=== PATIENT | female | born 2000 | race Two or more races ===

== ENCOUNTER 2021-04-21 22:58 | Inpatient (IN) | payer MEDICAID, SELFPAY ==
--- NOTE | ~2021-04-21 | US_ITS ---
EXAMINATION: US ABDOMEN LIMITED CLINICAL INFORMATION: Increased LFTs.. COMPARISON: None TECHNIQUE: Real-time imaging of the right upper quadrant abdominal viscera. FINDINGS: PANCREAS: Normal. LIVER: Normal. The liver is normal in size. The liver contour is normal. Parenchymal echogenicity is increased. No focal hepatic lesion. There is no intrahepatic biliary duct dilatation seen. GALLBLADDER: Color wall thickness measures 0.72 with minimal fluid within the gallbladder wall. The gallbladder is physiologically distended without evidence of stones, sludge, polyps, wall thickening or pericholecystic fluid. COMMON BILE DUCT: Normal in caliber measuring 0.16 cm in diameter. RIGHT KIDNEY: Normal. No hydronephrosis. No renal calculi or focal parenchymal lesions. The kidney measures 10.3 cm in maximum dimension. FREE FLUID: None. US/US abdomen limited IMPRESSION: Increased hepatic echogenicity but no focal lesion seen. Diffuse gallbladder wall thickening with with fluid collection within the wall. No echogenic gallstone. Question a calculus cholecystitis. Correlate with clinical examination if clinically indicated HIDA scan. Right kidney, CBD and pancreas is unremarkable.
--- NOTE | ~2021-04-21 | NM_ITS ---
EXAMINATION: NUCLEAR MEDICINE HEPATOBILIARY WITH PHARMACY. CLINICAL INFORMATION: Acalculus cholecystitis. Increased LFTs. COMPARISON: Ultrasound abdomen 04/22/2021. TECHNIQUE: Following intravenous administration of 5 mCi of 99m technetium mebrofenin, imaging of the right upper quadrant was obtained up to 60 minutes. At 60 minutes 8 ounces of Ensure was administered orally and further imaging was obtained upto 60 minutes. FINDINGS: There is normal hepatic uptake without any focal defects. There is prompt visualization of the gallbladder by 10 minutes and small bowel by 35 minutes. Following oral administration of Ensure the gallbladder ejection fraction measures 80% at 60 minutes and 82% at 30 minutes. NM/NM hepatobiliary w pharm IMPRESSION: Normal hepatic uptake. Patent cystic duct and patent common bile duct. Normal gallbladder ejection fraction of 88% at 60 minutes.
--- NOTE | ~2021-04-21 | XR_ITS ---
EXAMINATION: XR CHEST CLINICAL INFORMATION: Cough COMPARISON: None TECHNIQUE: Frontal view of the chest was obtained. FINDINGS: Lung volumes are symmetric. No focal consolidation is seen. No evidence of pneumothorax, pleural effusion, or pulmonary edema. The cardiomediastinal contour is unremarkable. No acute osseous findings are seen. XR/XR chest 1V IMPRESSION: No acute cardiopulmonary findings.
--- NOTE | ~2021-04-21 | CT_ITS ---
EXAMINATION: CT ABDOMEN AND PELVIS WITH CONTRAST CLINICAL INFORMATION: Fever, leukocytosis, vomiting, elevated LFTs, abdominal pain COMPARISON: None TECHNIQUE: Multidetector volumetric images were obtained from the superior aspect of the liver through the pubic symphysis following administration 75 mL of Omnipaque 350 intravenous contrast. Sagittal and coronal reformatted images were obtained on the technologist's workstation. Oral contrast: No This CT examination was performed using dose optimization techniques as appropriate, variously including the following: *Automated exposure control *Adjustment of mA and/or kV according to patient size (this includes techniques or standardized protocols for targeted exams where dose is matched to indication/reason for exam; i.e. extremities or head) *Use of iterative reconstruction technique DLP: 399 mGy-cm FINDINGS: LUNG BASES: The visualized lung bases demonstrate minimal atelectasis. LIVER, GALLBLADDER, AND BILIARY TREE: The liver is normal in size, shape, and attenuation. No focal hepatic lesion or biliary ductal dilatation is present. The gallbladder is unremarkable with no evidence of radiopaque gallstones, gallbladder wall thickening, or obvious pericholecystic inflammatory changes. PANCREAS: Unremarkable. SPLEEN: Unremarkable. ADRENAL GLANDS: Unremarkable. KIDNEYS AND URETERS: Both kidneys demonstrate heterogeneous nephrograms, with scattered areas of cortical hypoattenuation. Appearance is suspicious for pyelonephritis given the clinical history. No hydronephrosis or obstructing calculus is seen. Mild bilateral perinephric stranding. BLADDER: Partially distended with mild diffuse wall thickening. GASTROINTESTINAL TRACT: Assessment for wall thickening in some segments of the colon is limited due to luminal collapse. No evidence of bowel obstruction. Appendix contains gas and is nondilated. No free air is seen. ABDOMINAL WALL: No significant hernia is appreciated. LYMPH NODES: Scattered mesenteric and retroperitoneal subcentimeter lymph nodes are present, without significant enlargement by size criteria. VASCULAR: Unremarkable. PELVIC VISCERA: Unremarkable. Small amount of pelvic free fluid is noted. OSSEOUS STRUCTURES: Unremarkable. CT/CT abdomen pelvis w con IMPRESSION: 1. Heterogeneous bilateral nephrograms with scattered areas of cortical hypoattenuation in the kidneys. Given the clinical history, appearance is suspicious for pyelonephritis. 2. Mild wall thickening of the urinary bladder which could be secondary to cystitis. 3. Small amount of pelvic free fluid.
[2021-04-21 23:01] VITALS: BP 117/73; PULSE 113; RESP 18; TEMP 37.9; O2SAT 99
--- NOTE | 2021-04-21 23:53 | ED_ITS ---
HPI - General Adult General Chief complaint: General Medical Stated complaint: fever/vomiting Time Seen by Provider: 04/21/21 23:50 Source: patient Mode of arrival: ambulatory Limitations: no limitations History of Present Illness HPI narrative: 20-year-old female came in for evaluation of subjective fever, nausea, vomiting, coughing. Patient started with flu-like symptoms 2 days ago, patient unable to keep p.o. i ntake due to severe vomiting and fever and chills, patient has been coughing with productive white sputum, no sick contact, no recent travel, patient received 1 dose of COVID vaccination 2 weeks ago. No abdominal pain. Related Data Allergies Allergy/AdvReac Type Severity Reaction Status Date / Time No Known Allergies Allergy Verified 04/21/21 23:03 Review of Systems Review of Systems: All other systems are reviewed and are negative Constitutional: Reports as per HPI and Reports no additional constitutional complaints Eyes: Reports as per HPI and Reports no additional eye complaints Reports system reviewed and no additional complaints, except as documented Cardiovascular: Reports as per HPI and Reports no additional cardiovascular complaints Respiratory: Reports as per HPI and Reports no additional respiratory complaints Gastrointestinal: Reports as per HPI and Reports no additional gastrointestinal complaints Genitourinary: Reports no additional female genitourinary complaints Musculoskeletal: Reports no additional musculoskeletal complaints Skin/Breast: Reports system reviewed and no additional complaints, except as docu Psychiatric: Reports no additional psychiatric complaints Endocrine: Reports no additional endocrine complaints Hematologic/Lymphatic: Reports no additional hematologic/lymphatic complaints Allergic/Immunologic: Reports no additional allergic/immunologic complaints Reports system reviewed and no additional complaints, except as documented and Reports Abnormal speech present [facility] Past Medical History Medical History No known health problems Social History Social History Advance Directives: No Patient : No Physical Exam Vital Signs: Vital Signs: Last Vital Signs Temp 100.3 F 04/21/21 23:01 Pulse 113 H 04/21/21 23:01 Resp 18 04/21/21 23:01 BP 117/73 04/21/21 23:01 Pulse Ox 99 04/21/21 23:01 Body Mass Index 20.0 Vital signs have been reviewed as appeared to be correct. Blood pressure normal. Heart rate tachycardia. Respiration rate normal. Temperature normal. Oxygen saturation normal. Appearance: Alert. Oriented X3. No acute distress. Head: Normal external exam. Normocephalic. Atraumatic. No Vásquez signs noted. No raccoon eyes noted Eyes: PERRLA. EOMI. Conjunctiva and sclera normal. Eyelids normal. ENT: TM's Normal. Pharynx normal. Uvula midline. Dry mucous membranes. No trismus noted. No drooling noted. No muffled voice noted. Neck: Normal inspection. Neck supple. FROM. No adenopathy. Thyroid Normal. No meningeal signs. No neck mass noted. CVS: Normal heart rate and rhythm. Heart sound normal. No murmurs noted. Pulses normal throughout. Respiratory: No respiratory distress. Painless inspiration. Breath sounds normal. No wheezes/rales/rhonchi noted. Chest nontender. No accessory muscle usage noted or decreased air movement noted. Abdomen: Soft and nontender. Bowel sounds normal in all 4 quadrants. No distention noted. No organomegaly noted. No visible injury noted. Back: No CVA tenderness. Full range of motion noted. Skin: Skin warm and dry. Normal skin color. Normal skin turgor. No rashes/lesions/lacerations noted. Extremities: No lower extremity edema. Extremities exhibit normal range of motion. Extremities nontender. Neuro: Oriented X 3. No motor deficit. No sensory deficit. Reflexes normal. Course Course Course Narrative: 20-year-old female came in with nausea, vomiting, abdominal pain, and fever, found to be with leukocytosis, and elevated LFTs. Patient is is receiving IV hydration, morphine, anti nausea medication, and Toradol. Patient is a wooden CT scan of the abdomen pelvis with contrast, patient was signed out to Dr. Pastor to check CT and reassess the patient then dispo accordingly. Medical Decision Making Lab Data Result diagrams: 04/22/21 00:00 04/22/21 00:00 Labs: Lab Results 04/22/21 04/22/21 Range/Units 00:00 00:00 WBC 24.8 H (4.8-10.8) X10*3/uL RBC 4.19 L (4.20-5.50) X10*6/uL Hgb 12.5 (12.0-16.0) g/dl Hct 36.3 L (37-47) % MCV 86.6 (80-98) fL MCH 29.8 (27.0-33.0) pg MCHC 34.4 (31.0-35.0) g/dl RDW 13.0 (11.0-16.0) % Plt Count 347 (160-400) X10*3/uL MPV 9.1 L (9.4-12.3) fL Immature Gran % (Auto) 0.7 H (0.0-0.4) % Neut % (Auto) 81.8 H (45-73) % Lymph % (Auto) 6.2 L (20-40) % [place] % (Auto) 11.1 H (2-11) % Eos % (Auto) 0.0 (0-4) % Baso % (Auto) 0.2 (0-2) % Lymph # (Auto) 1.5 (1.2-4.9) X10*3/uL [place] # (Auto) 2.8 H (0.1-1.2) X10*3/uL Eos # (Auto) 0.0 (0.0-0.4) X10*3/uL Baso # (Auto) 0.1 (0.0-0.2) X10*3/uL Abs Immat Gran (auto) 0.18 H (0.00-0.03) X10*3/uL Absolute Neuts (auto) 20.2 H (2.0-8.3) X10*3/uL Absolute Nucleated RBC 0.000 (0.0-0.012) X10*3/uL Nucleated RBC % (auto) 0.0 (0.0-0.2) /100WBC Smear Tech's Comments VERIFIED Sodium 135 (135-145) mmol/L Potassium 3.9 (3.3-5.1) mmol/L Chloride 99 (96-108) mmol/L Carbon Dioxide 23 (22-29) mmol/L Anion Gap 17 (12-20) BUN 10 (9-16) mg/dL Creatinine 0.86 (0.5-1.4) mg/dL Estim Creat Clear Calc 83.7 Estimated GFR > 60 Random Glucose 122 H (60-115) mg/dL Calcium 9.7 (8.4-10.2) mg/dL Total Bilirubin 1.3 H (0.0-1.0) mg/dL Direct Bilirubin 0.6 H (0.0-0.5) mg/dL AST 172 H (5-31) U/L ALT 133 H (0-31) U/L Alkaline Phosphatase 164 H (39-117) U/L Total Protein 8.4 H (6.5-8.0) g/dL Albumin 4.2 (3.5-5.0) g/dL Lipase 27 (8-78) U/L Discharge Plan Discharge Clinical Impression: Leukocytosis, Elevated LFTs, Acute dehydration, Intractable vomiting
[2021-04-22] VITALS (10 sets, daily range): BP systolic 84–108; BP diastolic 45–67; PULSE 69–114; RESP 16–22; TEMP 37.5–39.2; O2SAT 97–100
[2021-04-22] MEDS: Ketorolac Tromethamine 15 MG/ML VIAL IVPUSH (00:08)
[2021-04-22] MEDS: 0.9 % Sodium Chloride 1,000 ML 999 ML IVCONT (00:08)
--- NOTE | 2021-04-22 00:11 | PC.NURSE ---
IV established, labs obtained. Pt medicated per MAR. IVF infusing. VSS. Continue to monitor.
[2021-04-22 00:16] LABS: Basophils Absolute Auto 0.1 X10*3/uL (0.0-0.2); Basophils Percent Auto 0.2 % (0-2); Hematocrit 36.3 % (37-47); Hemoglobin 12.5 g/dl (12.0-16.0); Imm Gran Abs Auto 0.18 X10*3/uL (0.00-0.03); Imm Gran Pct Auto 0.7 % (0.0-0.4); Lymphocytes Absolute Auto 1.5 X10*3/uL (1.2-4.9); Lymphocytes Percent Auto 6.2 % (20-40); MANUAL DIFF FLAG SCAN; Mean Corpuscular HGB Conc 34.4 g/dl (31.0-35.0); Mean Corpuscular Hemoglobin 29.8 pg (27.0-33.0); Mean Corpuscular Volume 86.6 fL (80-98); Mean Platelet Volume 9.1 fL (9.4-12.3); Monocytes Absolute Auto 2.8 X10*3/uL (0.1-1.2); Monocytes Percent Auto 11.1 % (2-11); Neutrophils Absolute Auto 20.2 X10*3/uL (2.0-8.3); Neutrophils Percent Auto 81.8 % (45-73); Platelet Count 347 X10*3/uL (160-400); Red Blood Count 4.19 X10*6/uL (4.20-5.50); SCAN SMEAR FLAG 1; White Blood Count 24.8 X10*3/uL (4.8-10.8)
[2021-04-22 00:33] LABS: SLIDE REVIEW VERIFIED
[2021-04-22 00:42] LABS: Influenza A PCR NEGATIVE (Negative); Influenza B PCR NEGATIVE (Negative); Resp Syncy Virus RNA Qual PCR NEGATIVE (Negative); SARS COV2 PCR INHOUSE NEGATIVE (Negative)
[2021-04-22 00:44] LABS: Alanine Aminotransferase 133 U/L (0-31); Albumin Level 4.2 g/dL (3.5-5.0); Alkaline Phosphatase 164 U/L (39-117); Anion Gap 17 (12-20); Aspartate Amino Transferase 172 U/L (5-31); Bilirubin Direct 0.6 mg/dL (0.0-0.5); Bilirubin Total 1.3 mg/dL (0.0-1.0); Blood Urea Nitrogen 10 mg/dL (9-16); Calcium 9.7 mg/dL (8.4-10.2); Carbon Dioxide 23 mmol/L (22-29); Chloride 99 mmol/L (96-108); Creatinine Clr Calc Pharmacy 83.7; Estimated Glomerular Filt Rate > 60; Glucose Random 122 mg/dL (60-115); Lipase 27 U/L (8-78); Potassium 3.9 mmol/L (3.3-5.1); Sodium 135 mmol/L (135-145); Total Protein 8.4 g/dL (6.5-8.0)
--- NOTE | 2021-04-22 00:45 | PC.NURSE ---
Pt arrives from home, ambulatory from the waiting room into room 19. Pt is CAOx4, speaking full sentences, ambulating with a steady gait. Skin hot, pale, dry. Pt reports fever/chills and left sided lower back pain x 1 week. +N/V x 2 days with decreased PO which is primarily why she came for an eval. Pt denies dysuria. Denies history of kidney infections. Pt aware of plan to await lab results and plan for CT. Continue to monitor.
[2021-04-22] MEDS: iohexoL 350 MG/ML 100 ML INFUS..BTL 75 ML IV (01:51)
--- NOTE | 2021-04-22 01:51 | PC.NURSE ---
Off to CT on hospital bed.
[2021-04-22] MEDS: 0.9 % Sodium Chloride 1,000 ML 999 ML IV ×3 (02:02→04:24)
--- NOTE | 2021-04-22 02:02 | PC.NURSE ---
MD notified of hypotension. Pt reports an episode of sweating approx 10 minutes ago but states it has resolved. Pt denies weakness/dizziness. Verbal order by MD for 1 li NS. Pt resting in bed at this time, awaiting CT results.
--- NOTE | 2021-04-22 02:40 | ED_ITS ---
HPI - General Adult General Chief complaint: General Medical Stated complaint: fever/vomiting Time Seen by Provider: 04/21/21 23:50 Source: patient Mode of arrival: ambulatory Limitations: no limitations Related Data Allergies Allergy/AdvReac Type Severity Reaction Status Date / Time No Known Allergies Allergy Verified 04/21/21 23:03 [facility] Past Medical History Medical History No known health problems Social History Social History Advance Directives: No Patient : No Physical Exam Vital Signs: Vital Signs: Last Vital Signs Temp 100 F 04/22/21 01:57 Pulse 78 04/22/21 01:57 Resp 16 04/22/21 01:57 BP 86/45 L 04/22/21 01:58 Pulse Ox 97 04/22/21 01:57 Body Mass Index 20.0 Course Course Course Narrative: I received sign-out from Dr. Ojeda. I was informed by the patient's nurse that the blood pressure is 86/45. 2 L of normal saline were hung, current blood pressure in the mid 90s. At this time, 240am we will do a septic workup, blood cultures and lactic acid pending. Patient has not been able to provide a urine sample. CT scan shows possible pyelonephritis, we will go ahead and treat empirically for pyelonephritis but the patient is able to urinate. Patient has received 2 L of normal saline, blood pressure continues being in the mid 90s. Patient is receiving 1 more L of normal saline. On recheck physical exam, patient does not have any abdominal pain. I ordered an ultrasound of the abdomen due to the elevated LFTs, however due to the time right now 03:15, septic tank service technician will not be coming in. At this time, acute cholecystitis is not suspected, patient will be admitted for possible pyelonephritis, the ultrasound if needed can be done in the morning. I discussed the patient with Dr. Pro, patient being admitted. Medical Decision Making Lab Data Result diagrams: 04/22/21 00:00 04/22/21 00:00 Labs: Lab Results 04/22/21 04/22/21 04/22/21 Range/Units 00:00 00:00 00:00 WBC 24.8 H (4.8-10.8) X10*3/uL RBC 4.19 L (4.20-5.50) X10*6/uL Hgb 12.5 (12.0-16.0) g/dl Hct 36.3 L (37-47) % MCV 86.6 (80-98) fL MCH 29.8 (27.0-33.0) pg MCHC 34.4 (31.0-35.0) g/dl RDW 13.0 (11.0-16.0) % Plt Count 347 (160-400) X10*3/uL MPV 9.1 L (9.4-12.3) fL Immature Gran % (Auto) 0.7 H (0.0-0.4) % Neut % (Auto) 81.8 H (45-73) % Lymph % (Auto) 6.2 L (20-40) % [place] % (Auto) 11.1 H (2-11) % Eos % (Auto) 0.0 (0-4) % Baso % (Auto) 0.2 (0-2) % Lymph # (Auto) 1.5 (1.2-4.9) X10*3/uL [place] # (Auto) 2.8 H (0.1-1.2) X10*3/uL Eos # (Auto) 0.0 (0.0-0.4) X10*3/uL Baso # (Auto) 0.1 (0.0-0.2) X10*3/uL Abs Immat Gran (auto) 0.18 H (0.00-0.03) X10*3/uL Absolute Neuts (auto) 20.2 H (2.0-8.3) X10*3/uL Absolute Nucleated RBC 0.000 (0.0-0.012) X10*3/uL Nucleated RBC % (auto) 0.0 (0.0-0.2) /100WBC Smear Tech's Comments VERIFIED Sodium 135 (135-145) mmol/L Potassium 3.9 (3.3-5.1) mmol/L Chloride 99 (96-108) mmol/L Carbon Dioxide 23 (22-29) mmol/L Anion Gap 17 (12-20) BUN 10 (9-16) mg/dL Creatinine 0.86 (0.5-1.4) mg/dL Estim Creat Clear Calc 83.7 Estimated GFR > 60 Random Glucose 122 H (60-115) mg/dL Lactic Acid (0.5-2.0) mmol/L Calcium 9.7 (8.4-10.2) mg/dL Total Bilirubin 1.3 H (0.0-1.0) mg/dL Direct Bilirubin 0.6 H (0.0-0.5) mg/dL AST 172 H (5-31) U/L ALT 133 H (0-31) U/L Alkaline Phosphatase 164 H (39-117) U/L Total Protein 8.4 H (6.5-8.0) g/dL Albumin 4.2 (3.5-5.0) g/dL Lipase 27 (8-78) U/L Urine Color Urine Appearance Urine pH (5.0-8.0) Ur Specific [place] (1.005-1.025) Urine Protein (NEG-TRACE) MG/DL Urine Glucose (UA) (NEG) MG/DL Urine Ketones (NEG) MG/DL Urine Blood (NEG) Urine Nitrite (NEG) Ur Leukocyte Esterase (NEG) Urine RBC (0) /HPF Urine WBC (0-4) /HPF Ur Squamous Epith Cells /LPF Urine Bacteria /LPF Urine Test (NEGATIVE) Coronavirus (PCR) NEGATIVE (Negative) Influenza Type A (PCR) NEGATIVE (Negative) Influenza Type B (PCR) NEGATIVE (Negative) RSV RNA Qual (PCR) NEGATIVE (Negative) 04/22/21 04/22/21 04/22/21 Range/Units 02:44 02:44 02:56 WBC (4.8-10.8) X10*3/uL RBC (4.20-5.50) X10*6/uL Hgb (12.0-16.0) g/dl Hct (37-47) % MCV (80-98) fL MCH (27.0-33.0) pg MCHC (31.0-35.0) g/dl RDW (11.0-16.0) % Plt Count (160-400) X10*3/uL MPV (9.4-12.3) fL Immature Gran % (Auto) (0.0-0.4) % Neut % (Auto) (45-73) % Lymph % (Auto) (20-40) % [place] % (Auto) (2-11) % Eos % (Auto) (0-4) % Baso % (Auto) (0-2) % Lymph # (Auto) (1.2-4.9) X10*3/uL [place] # (Auto) (0.1-1.2) X10*3/uL Eos # (Auto) (0.0-0.4) X10*3/uL Baso # (Auto) (0.0-0.2) X10*3/uL Abs Immat Gran (auto) (0.00-0.03) X10*3/uL Absolute Neuts (auto) (2.0-8.3) X10*3/uL Absolute Nucleated RBC (0.0-0.012) X10*3/uL Nucleated RBC % (auto) (0.0-0.2) /100WBC Smear Tech's Comments Sodium (135-145) mmol/L Potassium (3.3-5.1) mmol/L Chloride (96-108) mmol/L Carbon Dioxide (22-29) mmol/L Anion Gap (12-20) BUN (9-16) mg/dL Creatinine (0.5-1.4) mg/dL Estim Creat Clear Calc Estimated GFR Random Glucose (60-115) mg/dL Lactic Acid 0.7 (0.5-2.0) mmol/L Calcium (8.4-10.2) mg/dL Total Bilirubin (0.0-1.0) mg/dL Direct Bilirubin (0.0-0.5) mg/dL AST (5-31) U/L ALT (0-31) U/L Alkaline Phosphatase (39-117) U/L Total Protein (6.5-8.0) g/dL Albumin (3.5-5.0) g/dL Lipase (8-78) U/L Urine Color YELLOW Urine Appearance HAZY Urine pH 7.0 (5.0-8.0) Ur Specific [place] <= 1.005 (1.005-1.025) Urine Protein 1+ H (NEG-TRACE) MG/DL Urine Glucose (UA) NEG (NEG) MG/DL Urine Ketones 5 (NEG) MG/DL Urine Blood TRACE (NEG) Urine Nitrite NEG (NEG) Ur Leukocyte Esterase NEG (NEG) Urine RBC 1-4 (0) /HPF Urine WBC 15-29 H (0-4) /HPF Ur Squamous Epith Cells 1+ /LPF Urine Bacteria 1+ /LPF Urine Test NEGATIVE (NEGATIVE) Coronavirus (PCR) (Negative) Influenza Type A (PCR) (Negative) Influenza Type B (PCR) (Negative) RSV RNA Qual (PCR) (Negative) Discharge Plan Discharge Clinical Impression: Leukocytosis, Elevated LFTs, Acute dehydration, Intractable vomiting, Pyelonephritis Patient Disposition: Admitted As Inpatient
--- NOTE | 2021-04-22 02:50 | PC.NURSE ---
UA obtained. technical systems architect at bedside for BCX and lactic. MD at bedside for reeval due to hypotension.
[2021-04-22 02:55] LABS: Glucose Urine UA NEG (NEG); Leukocyte Esterase Urine NEG (NEG); Specific Gravity - Urine <= 1.005 (1.005-1.025); Urine Blood TRACE (NEG); Urine Ketones 5 MG/DL (NEG); Urine Protein 1+ MG/DL (NEG-TRACE)
[2021-04-22 02:57] LABS: Appearance Urine HAZY; Color Urine YELLOW; Nitrite Urine NEG (NEG)
[2021-04-22 03:03] LABS: Bacteria Urine 1+ /LPF; Squamous Epithelial Cell Urine 1+ /LPF; UACC CULT YES
[2021-04-22 03:04] LABS: Urine Pregnancy NEGATIVE (NEGATIVE)
[2021-04-22] MEDS: levoFLOXacin/D5W 500 MG/100 ML PIGGYBACK 100 MG IV ×2 (03:04→22:11)
[2021-04-22 03:05] LABS: UPreg QC Valid YES
[2021-04-22 03:17] LABS: Lactic Acid 0.7 mmol/L (0.5-2.0)
--- NOTE | 2021-04-22 04:16 | PC.NURSE ---
This RN calling hospitalist, encouraging eval due to hypotension. Hospitalist advising this RN to have MD Pastor consult with ICU.
--- NOTE | 2021-04-22 05:41 | PC.NURSE ---
Pt ambulating to and from the bathroom with a steady gait. VSS at this time, aware.
--- NOTE | 2021-04-22 05:48 | PM.IMHP ---
History of Present Illness Date of Service: 04/22/21 Chief Complaint: Nausea and vomiting 20-year-old female with no significant past medical history presented to the hospital with a chief complaint of nausea and vomiting. Patient reported that for the past 1 week she has been having intermittent episodes of fevers and chills; the past 3 days she has been having urinary frequency; for the past 2 days she has been having nausea and vomiting today she felt dizzy presented to the hospital for further evaluation. Patient denies any abdominal discomfort. Patient denies any chest pain or palpitations. Denies any diarrhea. Denies eating food outside, denies any concerns for food poisoning. Patient denies any blood in the vomitus Denies taking extra over the counter pain medications. Denies any pelvic pain or discharge per vaginum. Patient reports that she is sexually active and last active was about 1 week ago Review of all other systems is negative except mentioned above ER course: ER team mentioned that patient exam was benign; lab showed elevated liver enzymes; urinalysis was abnormal consistent possible UTI; urine test was negative; CT abdomen showed possible pyelonephritis/cystitis. FORMERLY [facility] Medical History No known health problems Social History Currently Displaying Signs/Symptoms of Drug Intoxication Withdrawal: No Advance Directives: No Do you have thoughts of harming others: None Do you have a plan to hurt others: No Plan Patient : No service: No Current occupational status: employed Meds Allergies Allergy/AdvReac Type Severity Reaction Status Date / Time No Known Allergies Allergy Verified 04/21/21 23:03 Active Medications: Current Medications Generic Name Dose Route Start Last Admin Trade Name Freq PRN Reason Stop Dose Admin Dextrose/Sodium Chloride 1,000 mls @ 100 mls/hr 04/22/21 04:15 D51/2ns IVCONT .Q10H GLENN Levofloxacin 500 mg in 100 mls @ 100 mls/hr 04/22/21 05:45 Levaquin IV Q24H GLENN Melatonin 3 mg 04/22/21 04:06 Melatonin 3 Mg Tablet PO BEDTIME PRN Insomnia Sodium Chloride 3 ml 04/22/21 08:00 0.9 % Sodium Chloride Flush 3 Ml Syringe IVFLUSH QSHIFT [facility] Physical Exam Vital Signs and Narrative: Vital Signs: Last Vital Signs Temp 100 F 04/22/21 01:57 Pulse 85 04/22/21 05:42 Resp 16 04/22/21 05:42 BP 99/62 04/22/21 05:42 Pulse Ox 97 04/22/21 01:57 Body Mass Index 20.0 Gen: Appears be in no acute distress HEENT: NCAT, Moist mucosa. Pulmonary: Vesicular breath sounds, fair air entry CVS: Normal S1-S2 Abdomen: BS+, Soft, Nontender; noted left-sided CVA tenderness Extremities: Warm well perfused Neuro: Alert and awake. Results Labs CBC and Chem 7: 04/24/21 06:15 04/23/21 06:08 Labs: Laboratory Results - last 24 hr 04/22/21 04/22/21 04/22/21 00:00 00:00 00:00 MCV 86.6 MCH 29.8 MCHC 34.4 RDW 13.0 Plt Count 347 MPV 9.1 L Immature Gran % (Auto) 0.7 H Neut % (Auto) 81.8 H Lymph % (Auto) 6.2 L [place] % (Auto) 11.1 H Eos % (Auto) 0.0 Baso % (Auto) 0.2 Lymph # (Auto) 1.5 [place] # (Auto) 2.8 H Eos # (Auto) 0.0 Baso # (Auto) 0.1 Abs Immat Gran (auto) 0.18 H Absolute Neuts (auto) 20.2 H Absolute Nucleated RBC 0.000 Nucleated RBC % (auto) 0.0 Smear Tech's Comments VERIFIED Anion Gap 17 Estim Creat Clear Calc 83.7 Estimated GFR > 60 Random Glucose 122 H Lactic Acid Calcium 9.7 Total Bilirubin 1.3 H Direct Bilirubin 0.6 H AST 172 H ALT 133 H Alkaline Phosphatase 164 H Total Protein 8.4 H Albumin 4.2 Lipase 27 Urine Color Urine Appearance Urine pH Ur Specific [place] Urine Protein Urine Glucose (UA) Urine Ketones Urine Blood Urine Nitrite Ur Leukocyte Esterase Urine RBC Urine WBC Ur Squamous Epith Cells Urine Bacteria Urine Test Coronavirus (PCR) NEGATIVE Influenza Type A (PCR) NEGATIVE Influenza Type B (PCR) NEGATIVE RSV RNA Qual (PCR) NEGATIVE 04/22/21 04/22/21 04/22/21 02:44 02:44 02:56 MCV MCH MCHC RDW Plt Count MPV Immature Gran % (Auto) Neut % (Auto) Lymph % (Auto) [place] % (Auto) Eos % (Auto) Baso % (Auto) Lymph # (Auto) [place] # (Auto) Eos # (Auto) Baso # (Auto) Abs Immat Gran (auto) Absolute Neuts (auto) Absolute Nucleated RBC Nucleated RBC % (auto) Smear Tech's Comments Anion Gap Estim Creat Clear Calc Estimated GFR Random Glucose Lactic Acid 0.7 Calcium Total Bilirubin Direct Bilirubin AST ALT Alkaline Phosphatase Total Protein Albumin Lipase Urine Color YELLOW Urine Appearance HAZY Urine pH 7.0 Ur Specific [place] <= 1.005 Urine Protein 1+ H Urine Glucose (UA) NEG Urine Ketones 5 Urine Blood TRACE Urine Nitrite NEG Ur Leukocyte Esterase NEG Urine RBC 1-4 Urine WBC 15-29 H Ur Squamous Epith Cells 1+ Urine Bacteria 1+ Urine Test NEGATIVE Coronavirus (PCR) Influenza Type A (PCR) Influenza Type B (PCR) RSV RNA Qual (PCR) Imaging Radiologist's Impressions: Impressions Chest X-Ray 04/21/21 23:51 IMPRESSION: No acute cardiopulmonary findings. Abdomen/Pelvis CT 04/22/21 00:50 IMPRESSION: 1. Heterogeneous bilateral nephrograms with scattered areas of cortical hypoattenuation in the kidneys. Given the clinical history, appearance is suspicious for pyelonephritis. 2. Mild wall thickening of the urinary bladder which could be secondary to cystitis. 3. Small amount of pelvic free fluid. Assessment and Plan (1) Pyelonephritis: Status: Acute 20-year-old female with no significant past medical history presented to the hospital with a chief complaint of nausea vomiting/fevers and chills/urinary frequency; on the CT scan noted to have pyelonephritis/cystitis. On the labs noted to have transaminitis. Admitted for further management. Sepsis secondary to UTI: Patient blood pressure was initially on the soft side; improved with IV fluids. Patient currently denies any lightheadedness or dizziness.lactic acid wnl [place] cystitis/pyelonephritis: Patient was given Levaquin in the ER. Will continue for now. Follow up cultures. Transaminitis: On CT abdomen-liver and gallbladder within normal limits; will obtain acute hepatitis panel. Monitor liver enzymes. DVT prophylaxis: SCD boots Code status: Full code Quality Stroke Does the patient have a stroke diagnosis?: No VTE Prior VTE?: No VTE Risk Level:: Medical - moderate - high VTE Device Contraindication: N/A - Device Ordered VTE Drug Contraindication: Treatment Not Indicated
[2021-04-22] MEDS: Dextrose 5 % and 0.45 % NaCl 1,000 ML 100 ML IVCONT ×2 (05:55→16:05)
--- NOTE | 2021-04-22 06:00 | PC.NURSE ---
Phleb at bedside for AM labs.
--- NOTE | 2021-04-22 06:00 | PC.NURSE ---
Hospitalist at bedside for eval.
[2021-04-22 06:47] LABS: Basophils Percent Auto 0.2 % (0-2); Eosinophils Percent Auto 0.1 % (0-4); Hematocrit 32.2 % (37-47); Hemoglobin 10.6 g/dl (12.0-16.0); Imm Gran Abs Auto 0.18 X10*3/uL (0.00-0.03); Imm Gran Pct Auto 0.8 % (0.0-0.4); Lymphocytes Absolute Auto 1.7 X10*3/uL (1.2-4.9); MANUAL DIFF FLAG SCAN; Mean Corpuscular HGB Conc 32.9 g/dl (31.0-35.0); Mean Corpuscular Hemoglobin 29.4 pg (27.0-33.0); Mean Corpuscular Volume 89.2 fL (80-98); Mean Platelet Volume 9.9 fL (9.4-12.3); Monocytes Absolute Auto 1.9 X10*3/uL (0.1-1.2); Neutrophils Absolute Auto 17.7 X10*3/uL (2.0-8.3); Neutrophils Percent Auto 81.9 % (45-73); Platelet Count 309 X10*3/uL (160-400); Red Blood Count 3.61 X10*6/uL (4.20-5.50); Red Cell Distribution Width 13.3 % (11.0-16.0); SCAN SMEAR FLAG 1; White Blood Count 21.6 X10*3/uL (4.8-10.8)
[2021-04-22 07:06] LABS: Magnesium 1.6 mg/dL (1.6-2.6)
[2021-04-22 07:14] LABS: Anion Gap 12 (12-20); Blood Urea Nitrogen 8 mg/dL (9-16); Carbon Dioxide 20 mmol/L (22-29); Chloride 110 mmol/L (96-108); Creatinine Clr Calc Pharmacy 110.8; Estimated Glomerular Filt Rate > 60; Glucose Random 96 mg/dL (60-115); Potassium 3.7 mmol/L (3.3-5.1); Sodium 138 mmol/L (135-145)
[2021-04-22 07:19] LABS: Alanine Aminotransferase 84 U/L (0-31); Aspartate Amino Transferase 85 U/L (5-31); Bilirubin Direct 0.6 mg/dL (0.0-0.5); Bilirubin Total 0.9 mg/dL (0.0-1.0)
[2021-04-22 07:23] LABS: HBc Num1 0.33 S/CO (0.00-0.79); HBsAGNum1 0.16 S/CO (0.00-0.99); Hepatitis B Core Antibody Nonreactive (Nonreactive); Hepatitis B Surface Antigen Negative (Negative)
[2021-04-22 07:33] LABS: HBS Num1 > 1000.00 mIU/mL (0-7.99); ~Hepatitis B Surface Antibody REACTIVE (Nonreactive); ~Hepatitis C Antibody Nonreactive (Nonreactive)
[2021-04-22 07:54] LABS: Alkaline Phosphatase 113 U/L (39-117); Total Protein 5.7 g/dL (6.5-8.0)
[2021-04-22 07:55] LABS: Calcium 7.2 mg/dL (8.4-10.2)
[2021-04-22] MEDS: 0.9 % Sodium Chloride Flush 3 ML SYRINGE IVFLUSH (08:17)
--- NOTE | 2021-04-22 08:35 | PC.NURSE ---
Pt alert and oriented x3, reports abdominal pain, denies n/v. She denies any other symptoms. +BS all quadrants. Fluids running without difficulty. Pt awaiting bed assignment, no apparent distress noted.
--- NOTE | 2021-04-22 08:54 | PC.NURSE ---
Report given to receiving nurse ROBB Parada.
--- NOTE | 2021-04-22 15:38 | P.PNIM_ITS ---
Subjective Subjective Date of Service: 04/22/21 Interval History: nausea improved c/o L flank pain, no RUQ pain Physical Exam Vital Signs: Vital Signs: Last Vital Signs Temp 102.5 F H 04/22/21 09:20 Pulse 114 H 04/22/21 09:20 Resp 22 H 04/22/21 09:20 BP 102/65 04/22/21 09:20 Pulse Ox 100 04/22/21 09:20 Body Mass Index 20.0 Gen: in no acute distress HEENT: sclera anicteric, moist mucus membranes Neck: supple Lungs: clear to auscultation bilaterally Heart: tachycardic, no murmurs Abd: soft, non-tender, non-distended : L CVA tenderness Ext: no edema Skin: warm/well-perfused Neuro: alert and oriented x3, no focal findings Psych: appropriate affect Objective Data Current Medications Generic Name Dose Route Start Last Admin Trade Name Freq PRN Reason Stop Dose Admin Dextrose/Sodium Chloride 1,000 mls @ 100 mls/hr 04/22/21 04:15 04/22/21 05:55 D51/2ns IVCONT 100 mls/hr .Q10H GLENN Administration Levofloxacin 500 mg in 100 mls @ 100 mls/hr 04/22/21 22:00 Levaquin IV Q24H GLENN Melatonin 3 mg 04/22/21 04:06 Melatonin 3 Mg Tablet PO BEDTIME PRN Insomnia Sodium Chloride 3 ml 04/22/21 08:00 04/22/21 08:17 0.9 % Sodium Chloride Flush 3 Ml Syringe IVFLUSH 3 ml QSHIFT GLENN Administration Labs CBC & Chem 7: 04/22/21 06:02 04/22/21 06:02 Labs: Laboratory Results - last 24 hr 04/22/21 04/22/21 04/22/21 00:00 00:00 00:00 WBC 24.8 H RBC 4.19 L Hgb 12.5 Hct 36.3 L MCV 86.6 MCH 29.8 MCHC 34.4 RDW 13.0 Plt Count 347 MPV 9.1 L Immature Gran % (Auto) 0.7 H Neut % (Auto) 81.8 H Lymph % (Auto) 6.[address] [place] % (Auto) 11.1 H Eos % (Auto) 0.0 Baso % (Auto) 0.2 Lymph # (Auto) 1.5 [place] # (Auto) 2.8 H Eos # (Auto) 0.0 Baso # (Auto) 0.1 Abs Immat Gran (auto) 0.18 H Absolute Neuts (auto) 20.2 H Absolute Nucleated RBC 0.000 Nucleated RBC % (auto) 0.0 Smear Tech's Comments VERIFIED Sodium 135 Potassium 3.9 Chloride 99 Carbon Dioxide 23 Anion Gap 17 BUN 10 Creatinine 0.86 Estim Creat Clear Calc 83.7 Estimated GFR > 60 Random Glucose 122 H Lactic Acid Calcium 9.7 Magnesium Total Bilirubin 1.3 H Direct Bilirubin 0.6 H AST 172 H ALT 133 H Alkaline Phosphatase 164 H Total Protein 8.4 H Albumin 4.2 Lipase 27 Urine Color Urine Appearance Urine pH Ur Specific [place] Urine Protein Urine Glucose (UA) Urine Ketones Urine Blood Urine Nitrite Ur Leukocyte Esterase Urine RBC Urine WBC Ur Squamous Epith Cells Urine Bacteria Urine Test Coronavirus (PCR) NEGATIVE Hep Bs Antigen Hep Bs Antibody Hep B Core Total Ab Hepatitis C Ab (EIA) Influenza Type A (PCR) NEGATIVE Influenza Type B (PCR) NEGATIVE RSV RNA Qual (PCR) NEGATIVE 04/22/21 04/22/21 04/22/21 02:44 02:44 02:56 WBC RBC Hgb Hct MCV MCH MCHC RDW Plt Count MPV Immature Gran % (Auto) Neut % (Auto) Lymph % (Auto) [place] % (Auto) Eos % (Auto) Baso % (Auto) Lymph # (Auto) [place] # (Auto) Eos # (Auto) Baso # (Auto) Abs Immat Gran (auto) Absolute Neuts (auto) Absolute Nucleated RBC Nucleated RBC % (auto) Smear Tech's Comments Sodium Potassium Chloride Carbon Dioxide Anion Gap BUN Creatinine Estim Creat Clear Calc Estimated GFR Random Glucose Lactic Acid 0.7 Calcium Magnesium Total Bilirubin Direct Bilirubin AST ALT Alkaline Phosphatase Total Protein Albumin Lipase Urine Color YELLOW Urine Appearance HAZY Urine pH 7.0 Ur Specific [place] <= 1.005 Urine Protein 1+ H Urine Glucose (UA) NEG Urine Ketones 5 Urine Blood TRACE Urine Nitrite NEG Ur Leukocyte Esterase NEG Urine RBC 1-4 Urine WBC 15-29 H Ur Squamous Epith Cells 1+ Urine Bacteria 1+ Urine Test NEGATIVE Coronavirus (PCR) Hep Bs Antigen Hep Bs Antibody Hep B Core Total Ab Hepatitis C Ab (EIA) Influenza Type A (PCR) Influenza Type B (PCR) RSV RNA Qual (PCR) 04/22/21 04/22/21 04/22/21 06:02 06:02 06:02 WBC 21.6 H RBC 3.61 L Hgb 10.6 L Hct 32.2 L MCV 89.2 MCH 29.4 MCHC 32.9 RDW 13.3 Plt Count 309 MPV 9.9 Immature Gran % (Auto) 0.8 H Neut % (Auto) 81.9 H Lymph % (Auto) 8.[address] [place] % (Auto) 9.0 Eos % (Auto) 0.1 Baso % (Auto) 0.2 Lymph # (Auto) 1.7 [place] # (Auto) 1.9 H Eos # (Auto) 0.0 Baso # (Auto) 0.0 Abs Immat Gran (auto) 0.18 H Absolute Neuts (auto) 17.7 H Absolute Nucleated RBC 0.000 Nucleated RBC % (auto) 0.0 Smear Tech's Comments Sodium 138 Potassium 3.7 Chloride 110 H Carbon Dioxide 20 L Anion Gap 12 BUN 8 L Creatinine 0.65 Estim Creat Clear Calc 110.8 Estimated GFR > 60 Random Glucose 96 Lactic Acid Calcium 7.2 L D Magnesium Total Bilirubin Direct Bilirubin AST ALT Alkaline Phosphatase Total Protein Albumin Lipase Urine Color Urine Appearance Urine pH Ur Specific [place] Urine Protein Urine Glucose (UA) Urine Ketones Urine Blood Urine Nitrite Ur Leukocyte Esterase Urine RBC Urine WBC Ur Squamous Epith Cells Urine Bacteria Urine Test Coronavirus (PCR) Hep Bs Antigen Negative Hep Bs Antibody REACTIVE Hep B Core Total Ab Nonreactive Hepatitis C Ab (EIA) Nonreactive Influenza Type A (PCR) Influenza Type B (PCR) RSV RNA Qual (PCR) 04/22/21 04/22/21 06:02 06:02 WBC RBC Hgb Hct MCV MCH MCHC RDW Plt Count MPV Immature Gran % (Auto) Neut % (Auto) Lymph % (Auto) [place] % (Auto) Eos % (Auto) Baso % (Auto) Lymph # (Auto) [place] # (Auto) Eos # (Auto) Baso # (Auto) Abs Immat Gran (auto) Absolute Neuts (auto) Absolute Nucleated RBC Nucleated RBC % (auto) Smear Tech's Comments Sodium Potassium Chloride Carbon Dioxide Anion Gap BUN Creatinine Estim Creat Clear Calc Estimated GFR Random Glucose Lactic Acid Calcium Magnesium 1.6 Total Bilirubin 0.9 Direct Bilirubin 0.6 H AST 85 H ALT 84 H Alkaline Phosphatase 113 D Total Protein 5.7 L D Albumin 3.0 L D Lipase Urine Color Urine Appearance Urine pH Ur Specific [place] Urine Protein Urine Glucose (UA) Urine Ketones Urine Blood Urine Nitrite Ur Leukocyte Esterase Urine RBC Urine WBC Ur Squamous Epith Cells Urine Bacteria Urine Test Coronavirus (PCR) Hep Bs Antigen Hep Bs Antibody Hep B Core Total Ab Hepatitis C Ab (EIA) Influenza Type A (PCR) Influenza Type B (PCR) RSV RNA Qual (PCR) Assessment and Plan (1) Pyelonephritis: Status: Acute Assessment and Plan: hospital d#1 20yo F with hx prior UTI admitted with sepsis from pyelonephritis, transaminasemia # pyelonephritis - continue levofloxacin d#1, follow BCx/UCx - continue IV fluids # transaminasemia - likely due to sepsis though US raises question of acalculous cholecystitis. will obtain HIDA scan and consult Gen Surg - HBV immune, HCV negative # VET ppx - SCDs Quality Stroke Does the patient have a stroke diagnosis?: No VTE Prior VTE?: No VTE Risk Level:: Medical - moderate - high VTE Device Contraindication: N/A - Device Ordered VTE Drug Contraindication: Treatment Not Indicated
[2021-04-22] MEDS: Acetaminophen 325 MG TABLET 650 MG PO (16:43)
[2021-04-23] VITALS: BP 98/54; PULSE 96; RESP 16; TEMP 36; O2SAT 98
[2021-04-23 06:54] LABS: Hematocrit 31.2 % (37-47); Hemoglobin 10.6 g/dl (12.0-16.0); Mean Corpuscular Hemoglobin 29.8 pg (27.0-33.0); Mean Corpuscular Volume 87.6 fL (80-98); Mean Platelet Volume 9.5 fL (9.4-12.3); Platelet Count 346 X10*3/uL (160-400); Red Blood Count 3.56 X10*6/uL (4.20-5.50); Red Cell Distribution Width 13.6 % (11.0-16.0); White Blood Count 19.3 X10*3/uL (4.8-10.8)
[2021-04-23 07:30] LABS: Alanine Aminotransferase 58 U/L (0-31); Albumin Level 3.1 g/dL (3.5-5.0); Alkaline Phosphatase 107 U/L (39-117); Anion Gap 12 (12-20); Aspartate Amino Transferase 35 U/L (5-31); Bilirubin Total 0.8 mg/dL (0.0-1.0); Blood Urea Nitrogen 3 mg/dL (9-16); Calcium 8.1 mg/dL (8.4-10.2); Carbon Dioxide 24 mmol/L (22-29); Chloride 104 mmol/L (96-108); Creatinine Clr Calc Pharmacy 110.8; Estimated Glomerular Filt Rate > 60; Glucose Random 99 mg/dL (60-115); Potassium 3.5 mmol/L (3.3-5.1); Sodium 136 mmol/L (135-145); Total Protein 6.1 g/dL (6.5-8.0)
[2021-04-23] MEDS: Dextrose 5 % and 0.45 % NaCl 1,000 ML 100 ML IVCONT (07:34)
[2021-04-23 07:42] LABS: HIV AB/AG Nonreactive (Nonreactive); HIV Num 1 0.06 S/CO (0.00-0.99)
[2021-04-23] MEDS: Acetaminophen 325 MG TABLET 650 MG PO ×2 (07:49→20:00)
[2021-04-23 07:50] VITALS: BP 97/53; PULSE 83; RESP 19; TEMP 37.6; O2SAT 98
--- NOTE | 2021-04-23 14:13 | P.PNIM_ITS ---
Subjective Subjective Date of Service: 04/23/21 Interval History: feels better, wants to eat flank pain improved no RUQ pain Physical Exam Vital Signs: Vital Signs: Last Vital Signs Temp 99.7 F 04/23/21 07:50 Pulse 83 04/23/21 07:50 Resp 19 04/23/21 07:50 BP 97/53 L 04/23/21 07:50 Pulse Ox 98 04/23/21 07:50 Body Mass Index 20.0 Gen: in no acute distress HEENT: sclera anicteric, moist mucus membranes Neck: supple Lungs: clear to auscultation bilaterally Heart: regular rate and rhythm, no murmurs Abd: soft, non-tender, non-distended : mild L CVAT Ext: no edema Skin: warm/well-perfused Neuro: alert and oriented x3, no focal findings Psych: appropriate affect Objective Data Current Medications Generic Name Dose Route Start Last Admin Trade Name Chey PRN Reason Stop Dose Admin Acetaminophen 650 mg 04/22/21 16:09 04/23/21 07:49 Acetaminophen 325 Mg Tablet PO 650 mg Q4H PRN Administration fever Levofloxacin 500 mg in 100 mls @ 100 mls/hr 04/22/21 22:00 04/23/21 01:13 Levaquin IV Infused Q24H GLENN Infusion Melatonin 3 mg 04/22/21 04:06 Melatonin 3 Mg Tablet PO BEDTIME PRN Insomnia Sodium Chloride 3 ml 04/22/21 08:00 04/23/21 07:38 0.9 % Sodium Chloride Flush 3 Ml Syringe IVFLUSH Not Given QSHIFT [facility] Labs CBC & Chem 7: 04/23/21 06:08 04/23/21 06:08 Labs: Laboratory Results - last 24 hr 04/23/21 04/23/21 04/23/21 06:08 06:08 06:08 WBC 19.3 H RBC 3.56 L Hgb 10.6 L Hct 31.2 L MCV 87.6 MCH 29.8 MCHC 34.0 RDW 13.6 Plt Count 346 MPV 9.5 Absolute Nucleated RBC 0.000 Nucleated RBC % (auto) 0.0 Sodium 136 Potassium 3.5 Chloride 104 Carbon Dioxide 24 Anion Gap 12 BUN 3 L D Creatinine 0.65 Estim Creat Clear Calc 110.8 Estimated GFR > 60 Random Glucose 99 Calcium 8.1 L D Total Bilirubin 0.8 AST 35 H D ALT 58 H Alkaline Phosphatase 107 Total Protein 6.1 L Albumin 3.1 L HIV 1&2 Ab/P24 Ag 4thGn Nonreactive Microbiology Microbiology Results: Microbiology 04/22/21 Unknown Urine Culture - Preliminary Urine clean catch - Urine perez top Gram negative radha 04/22/21 02:56 Blood Culture - Preliminary Blood - Venous No growth after 24 hours. 04/22/21 02:56 Blood Culture - Preliminary Blood - Venous No growth after 24 hours. Assessment and Plan (1) Pyelonephritis: Status: Acute Assessment and Plan: hospital d#2 20yo F with hx prior UTI admitted with sepsis from pyelonephritis, transaminasemia # pyelonephritis - continue levofloxacin d#2, follow BCx/UCx- growing GNRs out of urine - d/c IV fluids # transaminasemia - likely due to sepsis though US raises question of acalculous cholecystitis. HIDA scan pending - HBV immune, HCV negative # VTE ppx - SCDs Quality Stroke Does the patient have a stroke diagnosis?: No VTE Prior VTE?: No VTE Risk Level:: Medical - moderate - high VTE Device Contraindication: N/A - Device Ordered VTE Drug Contraindication: Treatment Not Indicated
[2021-04-23 16:00] VITALS: BP 101/58; PULSE 75; RESP 16; TEMP 36.6; O2SAT 97
--- NOTE | 2021-04-23 16:17 | MHC.CM.PN ---
nurse animal care service worker note electronic medical record reviewed along with case discussed on multiple disciplinary rounds. met with patient she reported this is her first experience with yti and pylenophritis , she just was assigned a new pcp with change in insurance at [address] [place] [address] and will be looking for a credit investigator physician . 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 she has no services in the home discjharge plan home no services pcp patient to follow up for post hospitla discharge transportation family
[2021-04-23] MEDS: 0.9 % Sodium Chloride Flush 3 ML SYRINGE IVFLUSH (17:09)
[2021-04-23 20:30] VITALS: BP 103/64; PULSE 88; RESP 16; TEMP 36.7; O2SAT 98
[2021-04-23] MEDS: levoFLOXacin/D5W 500 MG/100 ML PIGGYBACK 100 MG IV (23:00)
[2021-04-24] VITALS: BP 97/58; PULSE 72; RESP 16; TEMP 36.7; O2SAT 99
[2021-04-24] MEDS: 0.9 % Sodium Chloride Flush 3 ML SYRINGE IVFLUSH ×2 (00:02→09:12)
[2021-04-24 07:23] LABS: Hematocrit 31.6 % (37-47); Hemoglobin 10.5 g/dl (12.0-16.0); Mean Corpuscular HGB Conc 33.2 g/dl (31.0-35.0); Mean Corpuscular Volume 87.3 fL (80-98); Mean Platelet Volume 9.5 fL (9.4-12.3); Platelet Count 425 X10*3/uL (160-400); Red Blood Count 3.62 X10*6/uL (4.20-5.50); Red Cell Distribution Width 13.6 % (11.0-16.0); White Blood Count 13.6 X10*3/uL (4.8-10.8)
[2021-04-24 07:35] VITALS: BP 103/62; PULSE 71; RESP 18; TEMP 36.9; O2SAT 99
[2021-04-24 07:41] LABS: Alanine Aminotransferase 43 U/L (0-31); Albumin Level 3.3 g/dL (3.5-5.0); Alkaline Phosphatase 100 U/L (39-117); Aspartate Amino Transferase 22 U/L (5-31); Bilirubin Direct 0.3 mg/dL (0.0-0.5); Bilirubin Total 0.4 mg/dL (0.0-1.0); Total Protein 6.3 g/dL (6.5-8.0)
--- NOTE | 2021-04-24 11:54 | MHC.CM.PN ---
PT DISCHARGING HOME TODAY SELF-CARE, PT HAS [facility] PCP AND APPT, CM CLASSICS TEACHER TO VERIFY, PT WILL ARRANGE TRANSPORTATION.
[2021-04-24 12:20] LABS: Hepatitis A Antibody IgM 0.19 Index (0-0.79); ~Hepatitis A Antibody IgM Nonreactive (Nonreactive)
--- NOTE | 2021-04-24 14:02 | P.DS_ITS ---
DS: Providers Provider Date of Service: 04/24/21 Date of admission: 04/22/21 04:08 Primary care physician: Unknown Physician Consults: 04/22/21 15:39 Consult to General Surgery Routine Consulting [place] [facility] [place] [facility] Reason for consultation: ?acalculous noé DS: Diagnosis Discharge Diagnosis (1) Pyelonephritis: Status: Acute (2) Sepsis: Status: Acute (3) Leukocytosis: Status: Acute (4) Elevated LFTs: Status: Acute (5) E. coli UTI: Status: Acute DS: Medications Discharge Medications Home Medications: Previous Rx's Medication Instructions Recorded cefuroxime axetil 500 mg tablet 500 mg PO BID #16 tab 04/24/21 DS: Summary Hospital Course Hospital Course: From admission H+P by hospitalist Johan Pro, 04/22/21: 20-year-old female with no significant past medical history presented to the hospital with a chief complaint of nausea and vomiting. Patient reported that for the past 1 week she has been having intermittent episodes of fevers and chills; the past 3 days she has been having urinary frequency; for the past 2 days she has been having nausea and vomiting today she felt dizzy presented to the hospital for further evaluation. Patient denies any abdominal discomfort. Patient denies any chest pain or palpitations. Denies any diarrhea. Denies eating food outside, denies any concerns for food poisoning. Patient denies any blood in the vomitus Denies taking extra over the counter pain medications. Denies any pelvic pain or discharge per vaginum. Patient reports that she is sexually active and last active was about 1 week ago Review of all other systems is negative except mentioned above ER course: ER team mentioned that patient exam was benign; lab showed elevated liver enzymes; urinalysis was abnormal consistent possible UTI; urine test was negative; CT abdomen showed possible pyelonephritis/cystitis. The patient was admitted to the medical/surgical floor and treated with IV fluids and IV levofloxacin. Blood cultures were negative but urine cultures grew SMX/TMP-resistant Escherichia coli. Transaminasemia was attributed to sepsis; US raised question of acalculous cholecystitis but this was ruled out by normal HIDA scan and she did not have any RUQ pain. Nausea and vomiting resolved and her diet was advanced to a regular diet. She was discharged home on 8 more days of antibiotic treatment with oral cefuroxime and will need to establish primary care as soon as possible. Time Spent with Patient Time attestation: Total time spent providing and/or coordinating discharge services: 35 Discharge coordination time: Greater than 30 minutes Quality: Stroke Does the patient have a stroke diagnosis?: No Physical Exam Vital Signs: Vital Signs: Last Vital Signs Temp 98.4 F 04/24/21 07:35 Pulse 71 04/24/21 07:35 Resp 18 04/24/21 07:35 BP 103/62 04/24/21 07:35 Pulse Ox 99 04/24/21 07:35 Body Mass Index 20.0 Gen: in no acute distress HEENT: sclera anicteric, moist mucus membranes Neck: supple Lungs: clear to auscultation bilaterally Heart: regular rate and rhythm, no murmurs Abd: soft, non-tender, non-distended : no CVA tenderness Ext: no edema Skin: warm/well-perfused Neuro: alert and oriented x3, no focal findings Psych: appropriate affect DS: Data Data Completed and Pending Completed studies during hospitalization [Text1]: Laboratory Results WBC 13.6 X10*3/uL (4.8-10.8) H 04/24/21 06:15 RBC 3.62 X10*6/uL (4.20-5.50) L 04/24/21 06:15 Hgb 10.5 g/dl (12.0-16.0) L 04/24/21 06:15 Hct 31.6 % (37-47) L 04/24/21 06:15 MCV 87.3 fL (80-98) 04/24/21 06:15 MCH 29.0 pg (27.0-33.0) 04/24/21 06:15 MCHC 33.2 g/dl (31.0-35.0) 04/24/21 06:15 RDW 13.6 % (11.0-16.0) 04/24/21 06:15 Plt Count 425 X10*3/uL (160-400) H 04/24/21 06:15 MPV 9.5 fL (9.4-12.3) 04/24/21 06:15 Immature Gran % (Auto) 0.8 % (0.0-0.4) H 04/22/21 06:02 Neut % (Auto) 81.9 % (45-73) H 04/22/21 06:02 Lymph % (Auto) 8.0 % (20-40) L 04/22/21 06:02 [place] % (Auto) 9.0 % (2-11) 04/22/21 06:02 Eos % (Auto) 0.1 % (0-4) 04/22/21 06:02 Baso % (Auto) 0.2 % (0-2) 04/22/21 06:02 Lymph # (Auto) 1.7 X10*3/uL (1.2-4.9) 04/22/21 06:02 [place] # (Auto) 1.9 X10*3/uL (0.1-1.2) H 04/22/21 06:02 Eos # (Auto) 0.0 X10*3/uL (0.0-0.4) 04/22/21 06:02 Baso # (Auto) 0.0 X10*3/uL (0.0-0.2) 04/22/21 06:02 Abs Immat Gran (auto) 0.18 X10*3/uL (0.00-0.03) H 04/22/21 06:02 Absolute Neuts (auto) 17.7 X10*3/uL (2.0-8.3) H 04/22/21 06:02 Absolute Nucleated RBC 0.000 X10*3/uL (0.0-0.012) 04/24/21 06:15 Nucleated RBC % (auto) 0.0 /100WBC (0.0-0.2) 04/24/21 06:15 Smear Tech's Comments VERIFIED 04/22/21 00:00 Sodium 136 mmol/L (135-145) 04/23/21 06:08 Potassium 3.5 mmol/L (3.3-5.1) 04/23/21 06:08 Chloride 104 mmol/L (96-108) 04/23/21 06:08 Carbon Dioxide 24 mmol/L (22-29) 04/23/21 06:08 Anion Gap 12 (12-20) 04/23/21 06:08 BUN 3 mg/dL (9-16) L D 04/23/21 06:08 Creatinine 0.65 mg/dL (0.5-1.4) 04/23/21 06:08 Estim Creat Clear Calc 110.8 04/23/21 06:08 Estimated GFR > 60 04/23/21 06:08 Random Glucose 99 mg/dL (60-115) 04/23/21 06:08 Lactic Acid 0.7 mmol/L (0.5-2.0) 04/22/21 02:56 Calcium 8.1 mg/dL (8.4-10.2) L D 04/23/21 06:08 Magnesium 1.6 mg/dL (1.6-2.6) 04/22/21 06:02 Total Bilirubin 0.4 mg/dL (0.0-1.0) 04/24/21 06:15 Direct Bilirubin 0.3 mg/dL (0.0-0.5) 04/24/21 06:15 AST 22 U/L (5-31) 04/24/21 06:15 ALT 43 U/L (0-31) H 04/24/21 06:15 Alkaline Phosphatase 100 U/L (39-117) 04/24/21 06:15 Total Protein 6.3 g/dL (6.5-8.0) L 04/24/21 06:15 Albumin 3.3 g/dL (3.5-5.0) L 04/24/21 06:15 Lipase 27 U/L (8-78) 04/22/21 00:00 Urine Color YELLOW 04/22/21 02:44 Urine Appearance HAZY 04/22/21 02:44 Urine pH 7.0 (5.0-8.0) 04/22/21 02:44 Ur Specific [place] <= 1.005 (1.005-1.025) 04/22/21 02:44 Urine Protein 1+ MG/DL (NEG-TRACE) H 04/22/21 02:44 Urine Glucose (UA) NEG MG/DL (NEG) 04/22/21 02:44 Urine Ketones 5 MG/DL (NEG) 04/22/21 02:44 Urine Blood TRACE (NEG) 04/22/21 02:44 Urine Nitrite NEG (NEG) 04/22/21 02:44 Ur Leukocyte Esterase NEG (NEG) 04/22/21 02:44 Urine RBC 1-4 /HPF (0) 04/22/21 02:44 Urine WBC 15-29 /HPF (0-4) H 04/22/21 02:44 Ur Squamous Epith Cells 1+ /LPF 04/22/21 02:44 Urine Bacteria 1+ /LPF 04/22/21 02:44 Urine Test NEGATIVE (NEGATIVE) 04/22/21 02:44 Coronavirus (PCR) NEGATIVE (Negative) 04/22/21 00:00 Hepatitis A IgM Ab Nonreactive (Nonreactive) 04/22/21 06:02 Hep Bs Antigen Negative (Negative) 04/22/21 06:02 Hep Bs Antibody REACTIVE (Nonreactive) 04/22/21 06:02 Hep B Core Total Ab Nonreactive (Nonreactive) 04/22/21 06:02 Hepatitis C Ab (EIA) Nonreactive (Nonreactive) 04/22/21 06:02 HIV 1&2 Ab/P24 Ag 4thGn Nonreactive (Nonreactive) 04/23/21 06:08 Influenza Type A (PCR) NEGATIVE (Negative) 04/22/21 00:00 Influenza Type B (PCR) NEGATIVE (Negative) 04/22/21 00:00 RSV RNA Qual (PCR) NEGATIVE (Negative) 04/22/21 00:00 Impressions Chest X-Ray 04/21/21 23:51 IMPRESSION: No acute cardiopulmonary findings. Abdomen/Pelvis CT 04/22/21 00:50 IMPRESSION: 1. Heterogeneous bilateral nephrograms with scattered areas of cortical hypoattenuation in the kidneys. Given the clinical history, appearance is suspicious for pyelonephritis. 2. Mild wall thickening of the urinary bladder which could be secondary to cystitis. 3. Small amount of pelvic free fluid. Abdomen Ultrasound 04/22/21 03:15 IMPRESSION: Increased hepatic echogenicity but no focal lesion seen. Diffuse gallbladder wall thickening with with fluid collection within the wall. No echogenic gallstone. Question a calculus cholecystitis. Correlate with clinical examination if clinically indicated HIDA scan. Right kidney, CBD and pancreas is unremarkable. Hepatobiliary Scan Nuclear Medicine 04/22/21 15:40 IMPRESSION: Normal hepatic uptake. Patent cystic duct and patent common bile duct. Normal gallbladder ejection fraction of 88% at 60 minutes. Discharge Plan Discharge Patient Disposition: Home, Self-Care Discharge Diagnosis: sepsis from pyelonephritis due to E coli Referrals: Luis Chatterjee MD [Physician] - 1 Week Discharge Medications: New cefuroxime axetil 500 mg tablet 500 mg PO BID Qty: 16 RF: 0 Discharge Orders: Discharge Order (Routine); Ordered 04/24/21 Ordered By: Leticia Ayala Diet: advance to usual diet Activity on Discharge: As tolerated Stand Alone Forms: Patient Portal Discharge page, Work/School Release Care Plan Goals: resolution of infection Health Concerns: sepsis from pyelonephritis due to E coli Plan of Treatment: take cefuroxime axetil 500 mg twice daily for 8 days follow up with a primary care doctor in 1 week- establish PCP as soon as possible take OTC acetaminophen or ibuprofen for pain Assessment: as above Patient Instructions: Kidney Infection (DC)
--- NOTE | 2021-04-24 14:32 | MHC.CM.PN ---
PCP DR LUISA GARCIA, [employer] CONFIRMED APPT ON 05/20/2021 1:20PM PREVIOUSLY SCHEDULED.
== END 2021-04-24 14:45 | disposition home or self-care (01) | DRG 720 ==
LOC: HO.ED 04-22 03:29 → HO.EDOVER 04-22 05:50 → HO.S3 04-22 08:39
PROVIDERS: Emergency Medicine; Admitting Provider Hospitalist; Emergency Provider Emergency Medicine; PCP Internal Medicine; Visit Provider Family Medicine
DX: A41.9 Sepsis, unspecified organism (principal); N10 Acute pyelonephritis; B96.20 Unspecified Escherichia coli [E. coli] as the cause of diseases classified elsewhere; D72.829 Elevated white blood cell count, unspecified; E86.0 Dehydration; R74.01 Elevation of levels of liver transaminase levels; Z20.822 Contact with and (suspected) exposure to COVID-19; Z79.899 Other long term (current) drug therapy
CPT/HCPCS: 0241U; 36415; 71045; 74177; 76705; 78227; 80048; 80053; 80076; 81001; 81003; 81025; 83605; 83690; 83735; 85025; 85027; 86704; 86706; 86709; 86803; 87040; 87086; 87088; 87186; 87340; 87389; 99285; A9537; J1885; J1956; J2405; Q9967

== ENCOUNTER 2022-07-04 15:22 | Emergency (ER) | payer MEDICAID, SELFPAY ==
[2022-07-04 16:15] VITALS: BP 115/73; PULSE 63; RESP 14; O2SAT 99; BMI 21.8
--- OUTSIDE RECORDS SUMMARY | 2022-07-04 16:43 | XMS_ITS | Continuity of Care Document ---
:2000 Author Organization [facility] Address [address] [place] [address]- Care Team Providers Name Role Phone Marielos Alvarado MD Primary Care Physician Encounter [facility] [place] Date(s): 08/06/20 - 09/05/20 [facility] [address] [place], [place] [address] Attending Physician: Shey Leach Admitting Physician: Shey Leach Referring Physician: Shey Leach Allergies, Adverse Reactions, Alerts Substance Reaction Severity Status NKA Active Immunizations Given and Recorded Vaccine Date Status Refusal Reason Human Papillomavirus Vaccine 01/03/11 Recorded Human Papillomavirus Vaccine 11/05/10 Recorded Meningococcal Conjugate Vaccine 11/05/10 Recorded tetanus/diphtheria/pertussis, acel(Tdap) 10/08/10 Recorde d Measles/Mumps/Rubella Virus Vaccine 06/13/03 Recorded Measles/Mumps/Rubella Virus Vaccine 06/17/00 Recorded diphtheria/tetanus/pertussis, acel(DTaP) 06/13/03 Recorde d diphtheria/tetanus/pertussis, acel(DTaP) 12/08/00 Recorde d diphtheria/tetanus/pertussis, acel(DTaP) 04/24/00 Recorde d diphtheria/tetanus/pertussis, acel(DTaP) 02/04/00 Recorde d diphtheria/tetanus/pertussis, acel(DTaP) 99 Recorde d pneumococcal 13-valent vaccine 12/08/00 Recorded pneumococcal 13-valent vaccine 08/31/00 Recorded Varicella Virus Vaccine 06/17/00 Recorded Poliovirus Vaccine, Inactivated 02/04/00 Recorded Poliovirus Vaccine, Inactivated 99 Recorded Hepatitis B Vaccine (old term) 02/04/00 Recorded Problem List Condition Effective Dates Status Health Status Informant Patellofemoral joint pain(Confirmed) Active Social History Social History Type Response Smoking Status Never (less than 100 in life time) entered on: 07/26/19 Sex
--- OUTSIDE RECORDS SUMMARY | 2022-07-04 16:43 | XMS_ITS | Continuity of Care Document ---
:2000 Author Organization [facility] Address [address] [place] [address]- Care Team Providers Name Role Phone Christiano CLEARY, Marielos Primary Care Physician Encounter [facility] [place] Date(s): 03/05/21 - 03/12/21 [facility] [address] [place] [address]- Attending Physician: Bill Kern MD Referring Physician: Marielos Alvarado MD Allergies, Adverse Reactions, Alerts Substance Reaction Severity [...] Health Status Informant Patellofemoral joint pain(Confirmed) Active Vital Signs Most recent to oldest [Reference Range]: 1 Height 160.6 cm (03/05/21 12:20 PM) Oxygen Saturation [94-100 %] 100 % (03/05/21 12:20 PM) Pulse Rate [55-90 bpm] 68 bpm (03/05/21 12:20 PM) Blood Pressure [90-138/55-84 mm Hg] 111/73 mm Hg (03/05/21 12:20 PM) Respiratory Rate [16-30 br/min] 17 br/min (03/05/21 12:20 PM) Temperature [96.8-100.4 DegF] 98.2 DegF (03/05/21 12:20 PM) Mode of Delivery (Oxygen) Room air (03/05/21 12:20 PM) Blood pressure sites Arm, left (03/05/21 12:20 PM) Temperature Route Temporal (03/05/21 12:20 PM) Social History Social History Type Response Smoking Status Never (less than 100 in life time) entered on: 07/26/19 Sex
--- OUTSIDE RECORDS SUMMARY | 2022-07-04 16:43 | XMS_ITS | Continuity of Care Document ---
:2000 Author Organization [facility] Address [address] [place] [address]- Care Team Providers Name Role Phone Marielos Alvarado MD Primary Care Physician Encounter [facility] [place] Date(s): 03/05/21 - 04/04/21 [facility] [address] [place], [place] [address] Attending Physician: Shey Leach Admitting Physician: Shey [...]
--- OUTSIDE RECORDS SUMMARY | 2022-07-04 16:43 | XMS_ITS | Continuity of Care Document ---
:2000 Author Organization [facility] Address [address] [place] [address]- Care Team Providers Name Role Phone Marielos Alvarado MD Primary Care Physician Encounter [facility] [place] Date(s): 05/02/20 - 09/05/20 [facility] [address] [place], [place] [address] Attending Physician: Marielos Alvarado MD Allergies, Adverse Reactions, [...]
--- OUTSIDE RECORDS SUMMARY | 2022-07-04 16:43 | XMS_ITS | Continuity of Care Document ---
:2000 Author Organization [facility] Address [address] [place] [address]- Care Team Providers Name Role Phone Marielos Alvarado MD Primary Care Physician Encounter [facility] [place] Date(s): 05/20/21 - 05/27/21 [facility] [address] [place], [place] [address] Encounter Diagnosis Dysuria (Discharge Diagnosis) - 05/20/21 Pyelonephritis (Discharge Diagnosis) - 05/20/21 BCP ( control pills) initiation (Discharge Diagnosis) - 05/20/21 Attending Physician: Marielos Alvarado MD Allergies, Adverse Reactions, Alerts Substance Reaction Severity Status NKA Active Immunizations Given and Recorded Vaccine Date Status Refusal Reason tetanus/diphtheria/pertussis, acel(Tdap) 05/20/21 Given tetanus/diphtheria/pertussis, acel(Tdap) 10/08/10 Recorde d SARS-CoV-2 (COVID-19) Ad26 vaccine 01/02/21 Recorded Human Papillomavirus Vaccine 01/03/11 Recorded Human Papillomavirus Vaccine 11/05/10 Recorded Meningococcal Conjugate Vaccine 11/05/10 Recorded Measles/Mumps/Rubella Virus Vaccine 06/13/03 Recorded Measles/Mumps/Rubella Virus [...] Hepatitis B Vaccine (old term) 02/04/00 Recorded Medications [place] 100 mcg-20 mcg oral tablet 1 tablet, By Mouth, Daily, # 30 tablet, 6 Refills, Maintenance, 05/20/21 14:06:00 EDT, [id number], Partial fill upon patient request if the prescription is for a schedule II opioid drug., 1 tablet By Mouth Daily, 160.6, cm, 05/20/21 1... Start Date: 05/20/21 Status: Ordered Problem List Condition Effective Dates Status Health Status Informant Dysuria(Confirmed) Active Patellofemoral joint pain(Confirmed) Active Pyelonephritis(Confirmed) Active Diagnosis Diagnosis Type Effective Dates Health Clinical Infor mant Status Service Dysuria Discharge 05/20/21 Diagnosis Pyelonephritis Discharge 05/20/21 Diagnosis BCP ( control Discharge 05/20/21 pills) initiation Diagnosis Vital Signs Most recent to oldest [Reference Range]: 1 Height 160.6 cm (05/20/21 1:37 PM) Weight 52.8 kg (05/20/21 1:37 PM) Oxygen Saturation [94-100 %] 98 % (05/20/21 1:37 PM) Pulse Rate [55-90 bpm] 74 bpm (05/20/21 1:37 PM) Body Mass Index [18.5-24.99] 20.47 (05/20/21 1:37 PM) Blood Pressure [90-138/55-84 mm Hg] 90/60 mm Hg (05/20/21 1:37 PM) Temperature [96.8-100.4 DegF] 98.7 DegF (05/20/21 1:37 PM) Mode of Delivery (Oxygen) Room air (05/20/21 1:37 PM) Blood pressure sites Arm, right (05/20/21 1:37 PM) Temperature Route Temporal (05/20/21 1:37 PM) Social History Social History Type Response Smoking Status Never (less than 100 in life time) entered on: 07/26/19 Sex
--- OUTSIDE RECORDS SUMMARY | 2022-07-04 16:43 | XMS_ITS | Continuity of Care Document ---
:[address] [facility] Address [address] [place] [address]- Care Team Providers Name Role Phone Christiano CLEARY, Marielos Primary Care Physician Encounter [facility] Date(s): 04/25/21 - 05/25/21 [facility] [address] [place], [place] [address] Allergies, Adverse Reactions, Alerts Substance Reaction Severity [...] 30 tablet, 6 Refills, Maintenance, 05/20/21 14:06:00 [place], [id number], Partial fill upon patient request if the prescription is for a schedule II opioid drug., 1 tablet By Mouth Daily, 160.6, cm, 05/20/21 1... Start Date: 05/20/21 Status: Ordered Problem List Condition Effective Dates Status Health Status Informant Dysuria(Confirmed) Active Patellofemoral joint pain(Confirmed) Active Pyelonephritis(Confirmed) Active Social History Social History Type Response Smoking Status Never (less than 100 in life time) entered on: 07/26/19 Sex
--- NOTE | 2022-07-04 17:41 | ED.ANIMALBIT ---
HPI - Animal Bite General Chief Complaint: Animal Bite Stated Complaint: rabies shot Time Seen by Provider: 07/04/22 16:27 Source: patient Mode of arrival: ambulatory Limitations: no limitations History of Present Illness HPI narrative: Patient comes to the emergency room complaining of dog bite to the right. According to the patient, [place] dog park. A bigger dog was trying to bite her dog. To protect her own dog, patient put her arms around the dog's neck, therefore she got bitten by someone stuck. Patient has no information regarding the other dog. Patient is not sure if she is up-to-date with her Tdap. Complaining of 2 puncture wounds/dog bites to the dorsal aspect of the index finger of the right hand, no pain, no cellulitis symptoms Related Data Previous Rx's Medication Instructions Recorded cefuroxime axetil 500 mg tablet 500 mg PO BID #16 tabs 04/24/21 cefuroxime axetil 500 mg tablet 500 mg PO BID #16 tabs 04/24/21 amoxicillin 500 mg-potassium 1 tab PO BID #13 tabs 07/04/22 clavulanate 125 mg tablet (Augmentin) Allergies Allergy/AdvReac Type Severity Reaction Status Date / Time No Known Allergies Allergy Verified 04/21/21 23:03 Review of Systems Review of Systems: Constitutional : No Weight loss, No Fever, No Chills, No Night Sweats, No Fatigue, No Malaise ENT/Mouth : No Hearing loss, No Ear Pain, No Nasal Congestion, No Sinus Pain, No Hoarseness, No sore throat, No Rhinorrhea, No Swallowing Difficulty Eyes: No Eye Pain, No Swelling, No Redness, No Foreign Body, No Discharge, No Vision Changes Cardiovascular : No Chest Pain, No SOB, No Dyspnea on Exertion, No Orthopnea, No Edema, No Palpitations Respiratory : No Cough, No Sputum, No Wheezing, No Smoke Exposure, No Dyspnea Gastrointestinal : No Nausea, No Vomiting, No Diarrhea, No Constipation, No abdominal Pain, No Hematochezia, No Melena Genitourinary : no irregular bleeding, No Dysuria, No Urinary Frequency, No Hematuria, No Urinary Incontinence, No Urgency, No Flank Pain, No Urinary Flow Changes, No Hesitancy Musculoskeletal : No joint pain, No Myalgias, No Joint Swelling Skin : Complaining of 2 puncture wounds to the right hand index finger dorsal aspect Neuro : No Weakness, No Numbness, No Paresthesias, No Loss of Consciousness, No Dizziness, No Headache Psych : No Anxiety/Panic, No Depression, No SI/HI/AH/VH, No Social Issues, Heme/Lymph: No Bruising, No Bleeding,No Lymphadenopathy Endocrine : No Polyuria, No Polydipsia, No Temperature Intolerance PMFSH Past Medical History Medical History No known health problems Social History Social History Advance Directives: No Advance Directives Information Provided: No service: No Current occupational status: employed Physical Exam ED Vital Signs: Vital Signs - 24 hr 07/04/22 16:15 Pulse Rate 63 Respiratory Rate 14 Blood Pressure 115/73 Pulse Oximetry 99 Oxygen Delivery Method Room Air BMI result Body Mass Index 21.8 Const Other: Appearance: Alert. Oriented X3. No acute distress. Eyes: Pupils equal, round and reactive to light. ENT: Pharynx normal. Neck: Normal inspection. Neck supple. No lymph nodes noted. No crepitus CVS: Normal heart rate and rhythm. Pulses normal. Normal S1 and S2 Respiratory: No respiratory distress. Breath sounds normal. No Wheezing. No rales Abdomen: Soft and nontender. No rigidity. No distention. Skin: Skin warm and dry. 2 puncture wounds to the right hand index finger dorsal Extremities: No lower extremity edema. No Lacerations. No Rash Neuro: Oriented X 3. No motor deficit. No sensory deficit. Moving all extremities. No slurred speech. CN 2 through 12 grossly intact Psych: calm, cooperative, normal affect Course Course Course Narrative: Patient has 2 small puncture wounds, 2 mm each. Patient is able to flex and extend all fingers, no deep structure/tendon wound suspected. Patient was given in the emergency room the 1st dose of Augmentin, rabies immune globulin, rabies vaccine, and Tdap Discharge Plan Discharge Clinical Impression: Dog bite Patient Disposition: Home, Self-Care Instructions: Animal Bite (ED) Additional Instructions: Please follow-up with your primary care physician tomorrow. Please make sure that you complete the entire rabies immunization series. If you have any worsening or new symptoms, please return to the emergency room or call 911 Prescriptions: New amoxicillin-pot clavulanate [Augmentin] 500-125 mg tablet 1 tab PO BID Qty: 13 0RF No Action cefuroxime axetil 500 mg tablet 500 mg PO BID Qty: 16 0RF cefuroxime axetil 500 mg tablet 500 mg PO BID Qty: 16 0RF
[2022-07-04] MEDS: Diphth,Pertus(ACell),Tet Adult 0.5 ML SYRINGE IM (18:41)
[2022-07-04] MEDS: Rabies Immune Globulin/PF 900 UNIT/3 ML VIAL 1152.12 UNIT IM (18:42)
[2022-07-04] MEDS: Rabies Vaccine (PCEC)/PF 1 ML VIAL IM (18:43)
[2022-07-04] MEDS: Amoxicillin/Potassium Clav 875 MG TABLET PO (18:44)
== END 2022-07-04 19:12 | disposition home or self-care (01) ==
PROVIDERS: Emergency Provider Emergency Medicine
DX: S61.451A Open bite of right hand, initial encounter (principal); W54.0XXA Bitten by dog, initial encounter; Y93.9 Activity, unspecified; Y92.830 Public park as the place of occurrence of the external cause; Y99.9 Unspecified external cause status; Z29.14 Encounter for prophylactic rabies immune globulin; Z20.3 Contact with and (suspected) exposure to rabies; Z79.899 Other long term (current) drug therapy
CPT/HCPCS: 90375; 90471; 90472; 90675; 90715; 96372; 99282; 99284